=== PATIENT | female | born 1990 | race Caucasian/White ===

== ENCOUNTER 2023-02-03 09:27 | Emergency (ER) | payer OTHER, MEDICAID, SELFPAY ==
[2023-02-03 09:29] VITALS: BP 127/82; PULSE 87; RESP 15; TEMP 36.6; O2SAT 100; BMI 26.9
--- NOTE | 2023-02-03 09:32 | DI.RAD.S_ITS ---
PROCEDURE: XR KNEE LT 3V INDICATIONS: knee pain after fall 3 weeks ago TECHNIQUE: 3 views of the knee were acquired. COMPARISON: None. FINDINGS: Bones: No fractures or dislocations. There is a nonaggressive appearing sclerotic lesion in the proximal tibia. Soft tissues: No joint effusion. No suspicious soft tissue calcifications. IMPRESSION: 1. No acute osseous abnormality. 2. Nonaggressive appearing sclerosis in the posterior proximal tibia. If there is focal pain and tenderness, consider advanced imaging such as MRI for further evaluation. Dictated by: Corey Casarez M.D. on 02/03/2023 at 9:50 Approved by: Corey Casarez M.D. on 02/03/2023 at 9:54
--- NOTE | 2023-02-03 10:05 | ED_ITS ---
HPI - Extremity Injury (Lower) General Chief Complaint: Extremity Injury, Lower Stated Complaint: lt knee injury Time Seen by Provider: 02/03/23 09:52 Source: patient Mode of arrival: Ambulatory History of Present Illness HPI Narrative: 32-year-old female who approximately 3 weeks ago slipped and fell and landed on her left knee and also her left wrist. Her left wrist has healed however since her fall she has had discomfort with her left knee. No instability. No mechanical symptoms. She is able to ambulate but there are periods of time when she feels like that maybe her leg would give out on her. Pain sometimes radiates down to her ankle. She has tried icing it and also anti- inflammatories. No prior knee surgeries. Related Data Allergies Allergy/AdvReac Type Severity Reaction Status Date / Time cefaclor [From [facility]] Allergy Verified 02/03/23 09:29 Review of Systems Constitutional Constitutional: Reports system reviewed and no additional complaints, except as documented Musculoskeletal Musculoskeletal: Reports system reviewed and no additional complaints, except as documented Integumentary/Breasts Skin/Breast: Reports system reviewed and no additional complaints, except as documented Neurologic Neurologic: Reports system reviewed and no additional complaints, except as documented Hematologic/Lymphatic On Anticoagulants: No Exam Initial Vital Signs Initial Vital Signs: Vital Signs Temperature 97.9 F 02/03/23 09:29 Pulse Rate 87 02/03/23 09:29 Respiratory Rate 15 02/03/23 09:29 Blood Pressure 127/82 02/03/23 09:29 Pulse Oximetry 100 02/03/23 09:29 Oxygen Delivery Method Room Air 02/03/23 09:29 [facility] Head: normal to inspection and normocephalic Resp Effort & Inspection: normal respiratory effort Skin General: no rashes or lesions noted Neuro Sensory Exam: no sensory deficits noted Extrem General: capillary refill normal Other: No effusion. ACL MCL PCL and LCL are all intact with functional testing. Hamstrings are intact. Quadriceps and patellar tendon are intact. She is no tenderness in the posterior proximal tibia. Fibula is intact. Patient is ambulatory. She is full range of motion. Course Orders Ordered: ED Orders 02/03/23 09:32 XR knee LT 3V Stat Vital Signs Vital signs: Vital Signs - 8 hr 02/03/23 09:29 Temperature 97.9 F Pulse Rate 87 Respiratory Rate 15 Blood Pressure 127/82 Pulse Oximetry 100 Oxygen Delivery Method Room Air MDM - Extremity Injury (Lower) Imaging Data Extremity x-ray #1: Radiologist's Impression: PROCEDURE:? XR KNEE LT 3V ? INDICATIONS:? knee pain after fall 3 weeks ago ? TECHNIQUE:? 3 views of the knee were acquired.? ? COMPARISON:? None. ? FINDINGS:? ? Bones:? No fractures or dislocations.? There is a nonaggressive appearing sclerotic lesion in the proximal tibia.? ? Soft tissues:? No joint effusion.? No suspicious soft tissue calcifications.? ? ? IMPRESSION:? ? 1. No acute osseous abnormality. 2. Nonaggressive appearing sclerosis in the posterior proximal tibia.? If there is focal pain and tenderness, consider advanced imaging such as MRI for further evaluation. [facility] Narrative Medical decision making narrative: X-ray shows no acute pathology. No fractures. Patient is ambulatory. Has been 3 weeks since the procedure. Low suspicion for ligamentous injury. She potentially could have a meniscus injury although her symptoms are not 100% classic for this. I did discuss this with the patient. She was given an Vick bandage for her comfort. She was informed that if her symptoms do not improve in the next couple weeks that she may need to talk with her primary doctor about an MRI. Patient expressed understanding and agreement with plan. Discharge Plan Departure Patient Disposition: Home Clinical Impression: Knee sprain Instructions: How to Use an Elastic Bandage-Knee Sprain, DI for Knee Sprain, How To Perform RICE (Rest, Ice, Compress, Elevate) Activity Restrictions/Additional Instructions: You can walk on your knee as tolerated. You can use the elastic bandage as needed. If your symptoms do not improve in the next 7-14 days you may need to talk with your primary doctor about further imaging such as an MRI. Return to the emergency department for new or worsening symptoms. Referrals: Neena Damico MD [Primary Care Provider] - Stand Alone Forms: Patient Portal/API
== END 2023-02-03 10:30 | disposition home or self-care (01) ==
PROVIDERS: Emergency Provider Emergency Medicine; PCP Specialist
DX: S83.92XA Sprain of unspecified site of left knee, initial encounter (principal); W18.30XA Fall on same level, unspecified, initial encounter
CPT/HCPCS: 73562; 99283